=== PATIENT | male | born 2000 | race Caucasian/White ===

== ENCOUNTER 2019-02-23 07:38 | Outpatient (CLI) | payer BC ==
--- NOTE | 2019-02-23 08:17 | ULT ---
US Abdominal: 02/23/2019 12:00 AM CLINICAL HISTORY: Right-sided abdominal pain. STUDY: Complete abdominal ultrasound COMPARISON: None. FINDINGS: Liver: Size: Normal. Echogenicity: Hyperechoic consistent with hepatic steatosis. Contour: Smooth. Mass: None. Common bile duct: 3 mm Gallbladder: Normal. Pancreas: Head, body, and tail appear normal. Inferior vena cava: Normal in caliber Aorta: Normal in caliber Spleen: No focal lesions. Spleen measuring 12.3 cm in length. Right kidney: No pelvicalyceal dilatation. Right kidney measuring 13.0 cm in length. Left kidney: No pelvicalyceal dilatation. Left kidney measuring 13.3 cm in length. IMPRESSION: Fatty liver
== END 2019-02-23 07:39 | disposition home or self-care (01) ==
LOC: SCSULT 07:38
PROVIDERS: ATTEND Internal Medicine Gastroenterology
DX: K21.9 Gastro-esophageal reflux disease without esophagitis (principal); R10.9 Unspecified abdominal pain; R19.4 Change in bowel habit; R73.9 Hyperglycemia, unspecified; K76.0 Fatty (change of) liver, not elsewhere classified
CPT/HCPCS: 87338; 93975